=== PATIENT | male | born 1975 | race African-American/Black ===

== ENCOUNTER 2020-02-22 06:13 | Inpatient (IN) | payer MEDICAID ==
[~2020-02-22] VITALS: Ht 185.4 cm; Wt 76.9 kg
[2020-02-22] MEDS ORDERED: MORPHINE SULFATE 4 MG/ML CPJ (NOT FOR IM USE) IV STA (06:41)
[2020-02-22 07:16] LABS: BASOPHILS % 0.8 % (0.0-2.0); EOSINOPHILS % 0.4 % (0.0-5.0); HEMATOCRIT. 43.2 % (42.0-52.0); HEMOGLOBIN. 15.2 g/dL (14.0-18.0); LYMPHOCYTES % 24.2 % (20.0-50.0); MEAN CORPUSCULAR HEMOGLOBIN 35.5 pg (28.0-32.0); MEAN CORPUSCULAR VOLUME 101.2 fL (80.0-94.0); MONOCYTES % 5.8 % (2.0-8.0); NEUTROPHILS % 68.8 % (40.0-76.0); PLATELET 332 x1000/uL (130-400); RED BLOOD CELL COUNT 4.27 mill/uL (4.7-6.1); RED CELL DISTRIBUTION WIDTH 15.1 % (11.6-14.6)
[2020-02-22 07:22] LABS: CHLORIDE 104 mEq/L (98-107)
[2020-02-22 09:00] VITALS: BP 179/110
[2020-02-22 12:00] VITALS: BP 179/110
[2020-02-22] MEDS ORDERED: ONDANSETRON HCL 4MG/2ML INJ IV PRN (12:45)
[2020-02-22] MEDS ORDERED: ACETAMINOPHEN 325MG TABLET PO PRN (12:45)
[2020-02-22 13:50] LABS: *AMPHETAMINES SCREEN URINE NEGATIVE (NEGATIVE); *BARBITURATES SCREEN URINE NEGATIVE (NEGATIVE); *BENZODIAZEPINES SCREEN URINE NEGATIVE (NEGATIVE); *COCAINE SCREEN URINE NEGATIVE (NEGATIVE); METHADONE URINE SCREEN NEGATIVE (NEGATIVE); OPIATES URINE SCREEN NEGATIVE (NEGATIVE)
[2020-02-22 13:51] LABS: CANNABINOID URINE SCREEN PRESUMTIVE POSITIVE (NEGATIVE); PHENCYCLIDINE URINE SCREEN NEGATIVE (NEGATIVE)
[2020-02-22] MEDS: LOSARTAN POTASSIUM 100 MG TABLET PO SCH (13:55)
[2020-02-22] MEDS: KETOROLAC 30MG/ML VIAL IV PRN (13:55)
[2020-02-22 16:00] VITALS: BP 179/98
[2020-02-22] MEDS: HYDROCODONE/ACETAMINOPHEN 10/325MG TABLET PO PRN (16:30)
[2020-02-22 20:00] VITALS: BP 138/98
[2020-02-23] VITALS: BP 156/94
[2020-02-23 04:00] VITALS: BP 157/94
[2020-02-23] MEDS: KETOROLAC 30MG/ML VIAL IV PRN (06:05)
[2020-02-23 08:00] VITALS: BP 177/104
[2020-02-23] MEDS: LOSARTAN POTASSIUM 100 MG TABLET PO SCH (09:08)
[2020-02-23] MEDS: HYDROCODONE/ACETAMINOPHEN 10/325MG TABLET PO PRN ×3 (09:09→20:44)
[2020-02-23] MEDS ORDERED: AMLODIPINE 5MG TABLET PO NR (11:45)
[2020-02-23 12:00] VITALS: BP 137/88
[2020-02-23 16:00] VITALS: BP 146/100
[2020-02-23 17:05] LABS: BASOPHILS % 0.6 % (0.0-2.0); EOSINOPHILS % 1.5 % (0.0-5.0); HEMATOCRIT. 39.3 % (42.0-52.0); HEMOGLOBIN. 13.6 g/dL (14.0-18.0); LYMPHOCYTES % 26.3 % (20.0-50.0); MEAN CORPUSCULAR HEMOGLOBIN 35.1 pg (28.0-32.0); MEAN CORPUSCULAR VOLUME 101.6 fL (80.0-94.0); MEAN PLATELET VOLUME 7.6 fl (7.4-10.4); MONOCYTES % 8.5 % (2.0-8.0); NEUTROPHILS % 63.1 % (40.0-76.0); PLATELET 241 x1000/uL (130-400); RED BLOOD CELL COUNT 3.87 mill/uL (4.7-6.1); RED CELL DISTRIBUTION WIDTH 14.4 % (11.6-14.6)
[2020-02-23 17:32] LABS: CHLORIDE 102 mEq/L (98-107)
[2020-02-23 20:00] VITALS: BP 142/91
[2020-02-23] MEDS: AMLODIPINE 5MG TABLET PO SCH (20:44)
[2020-02-24] VITALS: BP 125/84
[2020-02-24] MEDS: HYDROCODONE/ACETAMINOPHEN 10/325MG TABLET PO PRN ×3 (00:56→11:11)
[2020-02-24] MEDS: KETOROLAC 30MG/ML VIAL IV PRN ×3 (03:10→16:06)
[2020-02-24 04:00] VITALS: BP 134/90
[2020-02-24 08:00] VITALS: BP 132/86
[2020-02-24] MEDS: LOSARTAN POTASSIUM 100 MG TABLET PO SCH (08:26)
[2020-02-24] MEDS: AMLODIPINE 5MG TABLET PO SCH (08:26)
[2020-02-24] MEDS ORDERED: AMLO5TAB88 PO (09:14)
[2020-02-24] MEDS ORDERED: HYDR-4009 PO (09:14)
[2020-02-24] MEDS ORDERED: LOSA100T3 PO (09:14)
[2020-02-24 12:00] VITALS: BP 132/94
[2020-02-24] MEDS ORDERED: IBUP-2029 MT (12:33)
[2020-02-24 13:17] LABS: CHLORIDE 103 mEq/L (98-107)
[2020-02-24 16:00] VITALS: BP 130/80
[2020-02-24 16:24] VITALS: BP 130/80
== END 2020-02-24 19:40 | disposition home or self-care (01) | DRG 135 ==
LOC: ER 06:13 → 6WST 08:44 → ENRESERV 10:41 → ER 11:22
PROVIDERS: ADMIT Internal Medicine Nephrology; ATTEND Internal Medicine Nephrology
DX: S22.41XA Multiple fractures of ribs, right side, initial encounter for closed fracture (principal); F12.90 Cannabis use, unspecified, uncomplicated; F17.210 Nicotine dependence, cigarettes, uncomplicated; I10 Essential (primary) hypertension; W19.XXXA Unspecified fall, initial encounter; Y93.89 Activity, other specified; Y92.89 Other specified places as the place of occurrence of the external cause; Y99.8 Other external cause status
CPT/HCPCS: 36415; 71045; 71101; 80048; 80053; 80305; 83880; 84484; 85025; 93005; 97161; 99285; J1885; J2270